=== PATIENT | female | born 1955 | race Caucasian/White ===

== ENCOUNTER → 2018-01-14 08:58 | Outpatient (CLI) | payer OTHER, SELFPAY | PROVIDERS: Family Provider Family Medicine; PCP Family Medicine | DX: R00.2 Palpitations (principal); R53.83 Other fatigue | CPT/HCPCS: 93225; 93226 ==

== ENCOUNTER 2019-07-15 13:01 | Inpatient (IN) | payer OTHER, SELFPAY ==
[2019-07-15] VITALS (10 sets, daily range): BP systolic 102–131; BP diastolic 50–74; PULSE 77–104; RESP 15–17; TEMP 36.9–37.3; O2SAT 93–98; BMI 25.2; BMI 24.8; BMI 24.9
--- NOTE | 2019-07-15 13:41 | CT_ITS ---
STUDY: CTA CHEST REASON FOR EXAM: Female, 63 years old. Patient has a history of lymphoma. RADIATION DOSAGE (If Supplied By Facility): CTDIvol = ( 6.66 ) mGy, DLP = ( 273.58 ) mGycm TECHNIQUE: The examination was performed with the intravenous administration of IV Isovue 370 100. Post-processing of the angiographic images was performed, with multiplanar reformation and 3D reconstruction. Individualized dose optimization techniques were used for this CT. COMPARISON: None. FINDINGS: Normal enhancement of the main pulmonary artery and right and left pulmonary arteries. Normal enhancement of the bilateral peripheral pulmonary arteries. There is no demonstrated pulmonary embolism. Normal thoracic aorta and visualized great vessels. There is no demonstrated aortic dissection. Normal heart and pericardium. Normal mediastinum. Small bilateral hilar lymph nodes. Normal visualized trachea and bronchi. The lungs are well expanded. Normal pulmonary parenchyma. Normal pleura. Normal chest wall structures. There are degenerative changes of thoracic spine. Massive splenomegaly. Multiple low density nodules are seen in the liver. These most likely represent multiple cysts. The largest is in the right lobe and measures 6.6 cm x 7.[address]/CTA Chest W/WO Contrast IMPRESSION: No evidence of pulmonary embolism. Marked degree of splenomegaly. Multiple cystic structures are seen within the liver. Electronically Signed: Jesus Guadalupe, at 15:21 EDT , Service support ,
[2019-07-15] MEDS: 0.9% Normal Saline 1,000 ML 1000 ML IV (14:16)
[2019-07-15] MEDS: MethylPREDNISolone 125 MG/2 ML Vial IV (14:16)
[2019-07-15 14:31] LABS: Absolute Lymphocyte Count 0.95 X10^3/uL (0.83-4.51); Basophil# 0.01 X10^3/uL; Basophil% 0.4 % (0-1); Eosinophil# 0.01 X10^3/uL; Eosinophils% 0.4 % (0-5); Hematocrit 23.4 % (37-47); Hemoglobin 7.4 g/dL (12.0-15.0); Lymphocyte # 0.95 X10^3/ul (4.0); Lymphocyte % 39.9 % (19-41); Mean Corp Hgb Conc 31.6 g/dL (32-36); Mean Corpuscular Hgb 26.6 pg (27.0-32.0); Mean Corpuscular Volume 84.2 fL (81-99); Mean Platelet Vol. 9.2 fl (6.2-12.0); Monocyte# 0.36 X10^3/uL; Monocyte% 15.1 % (0-10); NRBC Flagged by Analyzer 0 % (0-5); Neutrophil # 1.02 X10^3/uL (2.7-7.7); Neutrophil % 42.9 % (47-70); POSITIVE MORPHOLOGY YES; Platelet Count 105 K/mm3 (150-450); RBC Distribution Width CV 15.9 % (11.6-14.6); RBC Distribution Width SD 48.1 fl (35.1-43.9); Red Blood Count 2.78 M/mm3 (4.2-5.4); White Blood Count 2.4 K/mm3 (4.4-11.0)
[2019-07-15 14:34] LABS: Differential Indicated SCAN CRITERIA MET
[2019-07-15 14:36] LABS: International Normalized Ratio 1.2; Partial Thromboplast Time 29.3 Seconds (24.1-36.2); Prothrombin Time (Protime)PT. 14.5 SECONDS (11.7-14.9)
[2019-07-15 14:41] LABS: ALB/GLOB Ratio 1.3 RATIO (0.9-2.4); AST(SGOT) 22 U/L (15-37); Alanine Aminotransfer ALT/SGPT 20 U/L (13-56); Albumin, Serum 3.3 g/dL (3.2-5.0); Alkaline Phosphatase 145 U/L (45-117); Anion Gap 6 (5-15); BUN 17 mg/dL (7-18); BUN/Creat Ratio 19.5 RATIO (10-20); Calcium,Total 8.8 mg/dL (8.5-10.1); Chloride 105 mmol/L (98-107); Creatinine, Serum 0.87 mg/dL (0.55-1.02); EST Glomerular Filtration Rate 69 mL/min (>60); Est Glom Filt Rate - Afr Amer 84 mL/min (>60); Estimated Creatinine Clearance 61.16 ml/min; Globulin 2.6 g/dL (2.2-4.2); Glucose 99 mg/dL (74-106); Potassium 4.1 mmol/L (3.5-5.1); Protein, Total 5.9 g/dL (6.4-8.2); Sodium Level 138 mmol/L (136-145)
--- NOTE | 2019-07-15 15:03 | ED.VISSUMM ---
- ER Visit Summary Date of Service: 07/15/19 Chief Complaint: Anemia History of Present Illness: The patient is a 63 F with an extensive past medical history. She was referred to the ED by Dr. Franklin for evaluation and admission for further care. 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 She began having a dry cough this April. This was associated with fatigue. She saw her PCP who found an enlarged spleen. She had an outpatient CT that confirmed splenomegaly. She followed up with Dr. Franklin. She was found to be anemic. He did other testing and is concerned for a recurrence of her lymphoma. There was also some concern for Mycobacterium infection. She had an infection in her finger and completed a year of antibiotics in 2017. She is not having finger symptoms or wounds. Dr. Franklin to her arrival. He had advised admission. He wanted her treated with Solu-Medrol and he had advised a CT chest as this was pending. She was scheduled for one tomorrow. Of note, she is scheduled for a bone marrow biopsy next week. He has been treating her with Levaquin for 1 day for possible respiratory infection. He advised that the patient will need admission for IVIG and prednisone and likely continued antibiotics. He also said that her hemoglobin was 9 last week and today was 7.8. Her testing indicated that this is hemolytic anemia. Physical Examination: Afebrile and vital signs unremarkable except for heart rate of 104. Heart regular. Lungs clear. Abdomen soft. Skin grossly unremarkable. Alert and oriented. No acute distress. Test Results: Patient presents with labs from July 08. I do not see other blood work in the system. I am checking basic blood work and will order the CTA. Results are pending. Emergency Department Course and Treatment: Patient was treated with IV fluids and Solu-Medrol. Type and screen done, white count 2.4, hemoglobin 7.4, platelets 105. Total bilirubin 1.2, alkaline phosphatase 145, coags normal. CTA pending at the time of this dictation. Oncoming doctor will check the results. Will discuss with the hospitalist for admission for further care. Treatment Plan: As above Disposition: Admission Impression: 1. Hemolytic anemia 2. History of Malt lymphoma This note was generated with [employer] software. It may contain incorrect words, spelling, and punctuation that were not noted in review of the chart prior to signing ED Disposition - Plan for ED Patient: Referrals: Evelio Yun III, MD [Primary Care Provider] -
--- NOTE | 2019-07-15 15:28 | HP.PCM_ITS ---
Problem List (1) Anemia Status: Acute Qualifiers: Anemia type: unspecified type Qualified Code(s): D64.9 - Anemia, unspecified (2) Pancytopenia Status: Acute (3) Lymphoma Status: Acute Qualifiers: Lymphoma type: Hodgkin Hodgkin lymphoma type: unspecified type Lymphoma site: multiple regions Qualified Code(s): C81.98 - Hodgkin lymphoma, unspecified, lymph nodes of multiple sites (4) Sjogren's disease Status: Chronic Qualifiers: Sjogren's organ involvement: unspecified organ involvement Qualified Code(s): M35.00 - Sicca syndrome, unspecified History of Present Illness Date of Admission: 07/15/19 Chief Complaint: Abnormal blood work The patient is a 63 year old F's medical history of Sjogren's disease, 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 Franklin with months history of fatigue, dyspnea with exertion, dry cough, massive splenomegaly and weight loss. Patient was sent to the emergency room with abnormal blood work with concerns for hemolytic anemia. Her blood work in the [facility] oncology office (07/08/19) showed WBC 3.82, Hb 9.0, Plt 110, CMP was unremarkable, Quantiferon TB was indeterminate, HIV 1/2 negative, Hepatitis panel was negative, reticulocyte count of 3.2, haptoglobin was less than 10, LDH was 382, IgG was 569, IgA was 44 ,bone marrow biopsy planned for next week. She was sent to the emergency room with concerns for hemolytic anemia. 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 In the emergency department, her temperature was 99.1 F, heart rate 104, blood pressure 131/71, respiratory rate of 15, SPO2 is 96% on room air. WBC count was 2.4, hemoglobin was 7.4, platelet count was 105, INR was 1.2, CMP was unremarkable except for total bilirubin of 1.2, ALP of 145. CTA of the chest showed no evidence of PE, marked splenomegaly, multiple cystic structures in the liver. 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 Denies: Chills, Fever, Weight Change Eyes: Denies: Blurred vision, Cataracts, Conjunctivae Inflammation, Pain, Redness, Vision Change HEENT: Denies: Difficulty Hearing, Difficulty Swallowing, Head Aches, Hearing Changes, Sinus Congestion, Sinus Drainage Cardiovascular: Denies: Chest Pain, Claudication, Orthopnea, Palpitations, Paroxysmal Noc. Dyspnea Respiratory: Reports: Cough - dry. Denies: Shortness of breath at rest, Shortness of breath upon exertion, Sputum production Gastrointestinal: Denies: Abdominal Pain, Constipation, Hematemesis, Nausea, Vomiting Genitourinary: Denies: Dysuria, Frequency Musculoskeletal: Denies: Joint Pain, Joint stiffness, Joint swelling, Joint Tenderness Skin: Denies: Rash, Wounds Neurological: Denies: Numbness, Tingling, Focal weakness Psychiatric: Denies: Anxiety, Depression, Homicidal Ideations, Suicidal Ideations Hematologic/ Lymphatic: Denies: Easy Bruising, Easy Bleeding VTE Information - Inpt Only VTE Present on Admission: No VTE Pharm Prophylaxis ordered?: Yes Patient Problems: Active and Suspected Problems Anemia (Acute) Pancytopenia (Acute) Lymphoma (Acute) - Physical Exam General: Alert, Oriented x3, Cooperative, No apparent distress HEENT: Atraumatic, PERRLA, EOMI, Normocephalic Oral: Moist Mucosa Neck: Supple Lungs: Clear to auscultation, Normal air movement Cardiovascular: Regular rate, Regular Rhythm, Normal S1, Normal S2, No murmurs Abdomen: Bowel Sounds Present, Soft, Tender - over the epigastric and upper abdomen Extremities: No edema Skin: No rashes, No breakdown Musculoskeletal: No Tenderness to Palpation of Joints or Extremities Lymphatic: No Cervical, Supraclavicular, or Inguinal Adenopathy Neurological: Cranial nerves II-XII grossly intact, Neuro grossly intact Psych/Mental Status: Normal Affect, Appropriate Vital Signs Temp Pulse Resp BP Pulse Ox 99.1 F 104 H 15 131/71 H 96 07/15/19 13:02 07/15/19 13:02 07/15/19 13:02 07/15/19 13:02 07/15/19 13:02 Oxygen Delivery Method Room Air Weight: 71.1 kg Body Mass Index (BMI) 25.2 Laboratory Tests Past 24 Hrs 07/15/19 07/15/19 07/15/19 14:08 14:08 14:08 WBC 2.4 L RBC 2.78 L Hgb 7.4 L Hct 23.4 L MCV 84.2 MCH 26.6 L MCHC 31.6 L RDW Std Deviation 48.1 H RDW Coeff of Alex 15.9 H Plt Count 105 L MPV 9.2 Immature Gran % (Auto) 1.300 H Neut % (Auto) 42.9 L Lymph % (Auto) 39.9 [place] % (Auto) 15.1 H Eos % (Auto) 0.4 Baso % (Auto) 0.4 Absolute Neuts (auto) 1.0 L Absolute Lymphs (auto) 0.95 Nucleated RBC % 0 Differential Comment COMMENT PT 14.5 INR 1.2 APTT 29.3 Sodium 138 Potassium 4.1 Chloride 105 Carbon Dioxide 27.0 Anion Gap 6 BUN 17 Creatinine 0.87 Estim Creat Clear Calc 61.16 Est GFR (MDRD) Af Amer 84 Est GFR (MDRD) Non-Af 69 BUN/Creatinine Ratio 19.5 Glucose 99 Calcium 8.8 Total Bilirubin 1.20 H AST 22 ALT 20 Alkaline Phosphatase 145 H Total Protein 5.9 L Albumin 3.3 Globulin 2.6 Albumin/Globulin Ratio 1.3 Assessment/Plan All Active Problems Anemia (Acute) Pancytopenia (Acute) Lymphoma (Acute) 63 year old F's medical history of Sjogren's disease, 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 Franklin with months history of fatigue, dyspnea with exertion, dry cough, massive splenomegaly and weight loss. 1. Anemia, acute hemolytic anemia, noted on blood work done in the outpatient 1 week ago, follows with Dr. Franklin in the outpatient Hb was 9.0 on 07/08/19, dropped to 7.4 today. Pancytopenia also noted Patient received IV Solu-Medrol 125 mg x 1 today in ED Plan: Admit to Medsurg, pain screen against 2 units of blood, FOBT, iron stores, H&H every 6h, oncology consult Discussed with Dr. Franklin, IVIG 60 g x 2 days, prednisone from tomorrow 2. Massive splenomegaly, unclear etiology for now, likely secondary to probable lymphoma, follows with Dr. Franklin and Dr. Yun in the outpatient 3. Probable lymphoma, bone marrow biopsy planned for next week 4. Hypothyroidism, on Synthroid 5. Sjogren's disease 6. DVT PPx- Lovenox SC Code Visit Inpatient E&M: 79603 Subs Hosp L2
[2019-07-15 16:35] LABS: Ferritin 56 ng/mL (8-252); Iron 53 ug/dL (50-170); Iron Binding Capacity,Total 295 ug/dL (250-450)
[2019-07-15] MEDS: 0.9% Normal Saline 1,000 ML 100 ML IV (16:46)
[2019-07-15 18:02] LABS: Hemoglobin 7.3 g/dL (12.0-15.0); Platelet Count 93 K/mm3 (150-450); RET-HE 29.6 pg (30-35); Reticulocyte Count 3.23 % (0.5-1.5)
[2019-07-15] MEDS: Immune Globulin 20 gm Premixed Solution 30 BAG IV (21:28)
[2019-07-16] VITALS (18 sets, daily range): BP systolic 100–135; BP diastolic 41–71; PULSE 73–91; RESP 16–18; TEMP 36.3–37.1; O2SAT 94–99
[2019-07-16 00:03] LABS: Hemoglobin 7.1 g/dL (12.0-15.0)
[2019-07-16] MEDS: Immune Globulin 20 gm Premixed Solution 150 BAG IV ×2 (00:12→22:36)
[2019-07-16] MEDS: Immune Globulin 20 gm Premixed Solution 210 BAG IV (01:38)
[2019-07-16 06:40] LABS: Absolute Lymphocyte Count 1.39 X10^3/uL (0.83-4.51); Absolute Neutrophil Count 1.1 X10^3/uL (2.0-7.7); Basophil# 0.01 X10^3/uL; Basophil% 0.3 % (0-1); Hematocrit 21.9 % (37-47); Hemoglobin 6.7 g/dL (12.0-15.0); Lymphocyte # 1.39 X10^3/ul (4.0); Lymphocyte % 47.6 % (19-41); Mean Corp Hgb Conc 30.6 g/dL (32-36); Mean Corpuscular Hgb 26.3 pg (27.0-32.0); Mean Corpuscular Volume 85.9 fL (81-99); Mean Platelet Vol. 9.3 fl (6.2-12.0); Monocyte# 0.41 X10^3/uL; Neutrophil # 1.08 X10^3/uL (2.7-7.7); Neutrophil % 37.1 % (47-70); POSITIVE MORPHOLOGY YES; Platelet Count 101 K/mm3 (150-450); RBC Distribution Width CV 16.1 % (11.6-14.6); RBC Distribution Width SD 49.4 fl (35.1-43.9); Red Blood Count 2.55 M/mm3 (4.2-5.4); White Blood Count 2.9 K/mm3 (4.4-11.0)
[2019-07-16 06:46] LABS: Differential Indicated SCAN CRITERIA MET
[2019-07-16 07:03] LABS: ALB/GLOB Ratio 0.8 RATIO (0.9-2.4); AST(SGOT) 18 U/L (15-37); Alanine Aminotransfer ALT/SGPT 18 U/L (13-56); Albumin, Serum 2.8 g/dL (3.2-5.0); Alkaline Phosphatase 124 U/L (45-117); Anion Gap 6 (5-15); BUN 17 mg/dL (7-18); Calcium,Total 8.1 mg/dL (8.5-10.1); Chloride 110 mmol/L (98-107); Creatinine, Serum 0.89 mg/dL (0.55-1.02); Differential Comment SCANNED; EST Glomerular Filtration Rate 67 mL/min (>60); Est Glom Filt Rate - Afr Amer 82 mL/min (>60); Estimated Creatinine Clearance 59.78 ml/min; Globulin 3.4 g/dL (2.2-4.2); Glucose 118 mg/dL (74-106); LDH 322 U/L (84-246); Microcytosis 2+; Potassium 4.1 mmol/L (3.5-5.1); Protein, Total 6.2 g/dL (6.4-8.2); Sodium Level 141 mmol/L (136-145)
--- NOTE | 2019-07-16 07:59 | CON.PCM_ITS ---
Problem List (1) Non-Hodgkin lymphoma of extranodal and solid organ sites Status: Suspected (2) Anemia Status: Acute Qualifiers: Anemia type: acquired or hereditary hemolytic anemia Hemolytic anemia type: acquired, autoimmune, other Qualified Code(s): D59.1 - Other autoimmune hemolytic anemias (3) Sjogren's disease Status: Chronic Qualifiers: Sjogren's organ involvement: unspecified organ involvement Qualified Code(s): M35.00 - Sicca syndrome, unspecified (4) Splenomegaly Status: Acute - Consult Date of Consult: 07/16/[address] Perez regarding patient with severe autoimmune hemolytic anemia and splenomegaly suspicious for non-Hodgkin lymphoma. My final recommendation will be communicated to the nursing staff and also by electronic medical records. 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 Franklin with 2 months history of fatigue, dyspnea with exertion, dry cough, massive splenomegaly and weight loss (15 pounds) with early satiety. She noticed night sweats for the last month. Patient was sent to the emergency room with abnormal blood work with concerns for hemolytic anemia. Jose Juan was positive for complements but no warm IgG antibody. Her blood work in the [facility] oncology office (07/08/19) showed WBC 3.82, Hb 9.0, Plt 110, CMP was unremarkable, Quantiferon TB was indeterminate, HIV 1/2 negative, Hepatitis profile was negative, reticulocyte count of 3.2, haptoglobin was less than 10, LDH was 382, IgG was 569, IgA was 44 . A bone marrow biopsy planned for next week diagnosis of lymphoma. She was sent to the emergency room with concerns for hemolytic anemia. Her hemoglobin was 9.8 a month ago, today was 7.8. 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 Denies jaundice, fever, chills, chest pain, or shortness of breath. In the emergency department, her temperature was 99.1 F, heart rate 104, blood pressure 131/71, respiratory rate of 15, SPO2 is 96% on room air. WBC count was 2.4, hemoglobin was 7.4, platelet count was 105, INR was 1.2, CMP was unremarkable except for total bilirubin of 1.2, ALP of 145. CTA of the chest showed no evidence of PE, marked splenomegaly, multiple cystic structures in the liver. There are no hilar, mediastinal, axillary adenopathy. Past Medical History Past Medical History (Chronic Problems): Chronic Problems Sjogren's disease (Chronic) Allergies No Known Allergies Allergy (Verified 07/15/19 13:02) Home Medications: Ambulatory Orders Medication Instructions Recorded Cholecalciferol (Vitamin D3) 5,000 unit PO DAILY 07/15/19 [Vitamin D3] CycloSPORINE Ophthalmic [Restasis 1 drp EACHEYE BID 07/15/19 Ophthalmic] Estradiol 10 mg PO QWEEK 07/15/19 Levofloxacin 750 mg PO DAILY 07/15/19 Levothyroxine Sodium [Synthroid] 100 mcg PO DAILY 07/15/19 Surgical History: no surgical history Psychiatric History: No pertinent psych hx [employer] 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 Denies: Chills, Fever, Weight Change Eyes: Denies: Blurred vision, Cataracts, Conjunctivae Inflammation, Pain, Redness, Vision Change HEENT: Denies: Difficulty Hearing, Difficulty Swallowing, Head Aches, Hearing Changes, Sinus Congestion, Sinus Drainage Cardiovascular: Denies: Chest Pain, Claudication, Orthopnea, Palpitations, Paroxysmal Noc. Dyspnea Respiratory: Reports: Cough - dry. Denies: Shortness of breath at rest, Shortness of breath upon exertion, Sputum production Gastrointestinal: Denies: Abdominal Pain, Constipation, Hematemesis, Nausea, Vomiting Genitourinary: Denies: Dysuria, Frequency Musculoskeletal: Denies: Joint Pain, Joint stiffness, Joint swelling, Joint Tenderness Skin: Denies: Rash, Wounds Neurological: Denies: Numbness, Tingling, Focal weakness Psychiatric: Denies: Anxiety, Depression, Homicidal Ideations, Suicidal Id eations Hematologic/ Lymphatic: Denies: Easy Bruising, Easy Bleeding Hemolytic anemia (Acute) Pancytopenia secondary to splenomegaly (Acute) Non-Hodgkin lymphoma (Suspect) - Physical Exam General: Alert, Oriented x3, Cooperative, No apparent distress HEENT: Atraumatic, PERRLA, EOMI, Normocephalic Oral: Moist Mucosa Neck: Supple Lungs: Clear to auscultation, Normal air movement Cardiovascular: Regular rate, Regular Rhythm, Normal S1, Normal S2, No murmurs Abdomen: Bowel Sounds Present, Soft, Tender - over the epigastric and upper abdomen + massive splenomegaly to left pelvis. No ascites Extremities: No edema Skin: No rashes, No breakdown Musculoskeletal: No Tenderness to Palpation of Joints or Extremities Lymphatic: No Cervical, Supraclavicular, or Inguinal Adenopathy Neurological: Cranial nerves II-XII grossly intact, Neuro grossly intact Psych/Mental Status: Normal Affect, Appropriate Vital Signs Temp Pulse Resp BP Pulse Ox 99.1 F 104 H 15 131/71 H 96 07/15/19 13:02 07/15/19 13:02 07/15/19 13:02 07/15/19 13:02 07/15/19 13:02 Oxygen Delivery Method Room Air Weight: 71.1 kg Body Mass Index (BMI) 25.2 Laboratory Results - last 24 hr 07/15/19 07/15/19 07/15/19 14:08 14:08 14:08 WBC 2.4 L RBC 2.78 L Hgb 7.4 L Hct 23.4 L MCV 84.2 MCH 26.6 L MCHC 31.6 L RDW Std Deviation 48.1 H RDW Coeff of Alex 15.9 H Plt Count 105 L MPV 9.2 Immature Gran % (Auto) 1.300 H Neut % (Auto) 42.9 L Lymph % (Auto) 39.9 [place] % (Auto) 15.1 H Eos % (Auto) 0.4 Baso % (Auto) 0.4 Absolute Neuts (auto) 1.0 L Absolute Lymphs (auto) 0.95 Nucleated RBC % 0 Differential Comment COMMENT Microcytosis Retic Count Immature Retic Fraction Retic Hgb Equivalent PT 14.5 INR 1.2 APTT 29.3 Sodium 138 Potassium 4.1 Chloride 105 Carbon Dioxide 27.0 Anion Gap 6 BUN 17 Creatinine 0.87 Estim Creat Clear Calc 61.16 Est GFR (MDRD) Af Amer 84 Est GFR (MDRD) Non-Af 69 BUN/Creatinine Ratio 19.5 Glucose 99 Calcium 8.8 Iron TIBC Iron Saturation Ferritin Total Bilirubin 1.20 H AST 22 ALT 20 Alkaline Phosphatase 145 H Lactate Dehydrogenase Total Protein 5.9 L Albumin 3.3 Globulin 2.6 Albumin/Globulin Ratio 1.3 Folate Blood Type Antibody Screen Antibody Identification 07/15/19 07/15/19 07/15/19 14:08 14:08 17:45 WBC RBC Hgb 7.3 L Hct 23.0 L MCV MCH MCHC RDW Std Deviation RDW Coeff of Alex Plt Count MPV Immature Gran % (Auto) Neut % (Auto) Lymph % (Auto) [place] % (Auto) Eos % (Auto) Baso % (Auto) Absolute Neuts (auto) Absolute Lymphs (auto) Nucleated RBC % Differential Comment Microcytosis Retic Count 3.23 H Immature Retic Fraction 24.50 H Retic Hgb Equivalent 29.6 L PT INR APTT Sodium Potassium Chloride Carbon Dioxide Anion Gap BUN Creatinine Estim Creat Clear Calc Est GFR (MDRD) Af Amer Est GFR (MDRD) Non-Af BUN/Creatinine Ratio Glucose Calcium Iron 53 TIBC 295 Iron Saturation 18.0 Ferritin 56 Total Bilirubin AST ALT Alkaline Phosphatase Lactate Dehydrogenase Total Protein Albumin Globulin Albumin/Globulin Ratio Folate 10.90 Blood Type Antibody Screen Antibody Identification 07/15/19 07/15/19 07/16/19 17:45 23:50 06:04 WBC 2.9 L RBC 2.55 L Hgb 7.1 L 6.7 L Hct 23.0 L 21.9 L MCV 85.9 MCH 26.3 L MCHC 30.6 L RDW Std Deviation 49.4 H RDW Coeff of Alex 16.1 H Plt Count 101 L MPV 9.3 Immature Gran % (Auto) 1.000 H Neut % (Auto) 37.1 L Lymph % (Auto) 47.6 H [place] % (Auto) 14.0 H Eos % (Auto) 0.0 Baso % (Auto) 0.3 Absolute Neuts (auto) 1.1 L Absolute Lymphs (auto) 1.39 Nucleated RBC % 1.0 Differential Comment SCANNED Microcytosis 2+ Retic Count Immature Retic Fraction Retic Hgb Equivalent PT INR APTT Sodium Potassium Chloride Carbon Dioxide Anion Gap BUN Creatinine Estim Creat Clear Calc Est GFR (MDRD) Af Amer Est GFR (MDRD) Non-Af BUN/Creatinine Ratio Glucose Calcium Iron TIBC Iron Saturation Ferritin Total Bilirubin AST ALT Alkaline Phosphatase Lactate Dehydrogenase Total Protein Albumin Globulin Albumin/Globulin Ratio Folate Blood Type A NEGATIVE Antibody Screen NEGATIVE Antibody Identification NEGATIVE ANTIBODY PANEL 07/16/19 06:04 WBC RBC Hgb Hct MCV MCH MCHC RDW Std Deviation RDW Coeff of Alex Plt Count MPV Immature Gran % (Auto) Neut % (Auto) Lymph % (Auto) [place] % (Auto) Eos % (Auto) Baso % (Auto) Absolute Neuts (auto) Absolute Lymphs (auto) Nucleated RBC % Differential Comment Microcytosis Retic Count Immature Retic Fraction Retic Hgb Equivalent PT INR APTT Sodium 141 Potassium 4.1 Chloride 110 H Carbon Dioxide 25.0 Anion Gap 6 BUN 17 Creatinine 0.89 Estim Creat Clear Calc 59.78 Est GFR (MDRD) Af Amer 82 Est GFR (MDRD) Non-Af 67 BUN/Creatinine Ratio 19.0 Glucose 118 H Calcium 8.1 L Iron TIBC Iron Saturation Ferritin Total Bilirubin 0.70 AST 18 ALT 18 Alkaline Phosphatase 124 H Lactate Dehydrogenase 322 H Total Protein 6.2 L Albumin 2.8 L Globulin 3.4 Albumin/Globulin Ratio 0.8 L Folate Blood Type Antibody Screen Antibody Identification Assessment/Plan All Active Problems Hemolytic anemia (Acute) -low level IgG versus IgM antibodies Pancytopenia (Acute) -secondary to hypersplenism Non-Hodgkin lymphoma (Suspect) Cough (Chronic) -secondary to diaphragmatic irritation from enlarged spleen. 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 2 months history of fatigue, dyspnea with exertion, dry cough, massive splenomegaly and weight loss secondary to recurrent lymphoma. 1) Anemia, acute hemolytic anemia, possible low level of IgG versus cold agglutinins Hb was 9.7 on 06/26/19, dropped to 7.4 today. Pancytopenia also noted Patient received IV Solu-Medrol 125 mg x 1 today in ED Plan: -Repeat IVIG 1grm/kg IV today -Prednisone 60mg daily -Folic acid 1mg daily -Zantac/Pepcid daily -Monitor CBC daily and possible discharge home this weekend if stable. -Avoid blood transfusion unless patient is symptomatic and hemoglobin < 6.0 -If Blood transfusion as needed; use blood warmer for transfusion because of possibility of cold agglutinins. 2) hypersplenism -Asymptomatic except for pancytopenia Plan: -Monitor for pain and splenic infarcts -LMWH sq daily for DVT prophylaxis 3) non-Hodgkin lymphoma -Staging work-up so far negative except for hypersplenism Plan: -Check for GI involvement (MALT-lymphoma) -Stool for Hemoccult and H. pylori breath test -Possible EGD as an outpatient 4) chronic cough -No active sign of infection or interstitial lung disease on CT chest. Plan: -Check respiratory panel -Cough Suppressant as needed. Patient is plan for discharge this weekend if stable. Follow-up with Dr. Franklin on Saturday for bone marrow biopsy as outpatient. cc: Dr. Uzair Franklin; Dr. Evelio Yun, III; Dr. Morgan Rendon
[2019-07-16] MEDS: predniSONE 20 MG Tablet 60 MG PO (08:44)
[2019-07-16] MEDS: Folic Acid 1 MG Tablet PO (08:44)
[2019-07-16] MEDS: Enoxaparin 40 MG/0.4 ML Syringe SC (08:52)
[2019-07-16 09:08] LABS: Vitamin B12 260 pg/mL (211-911)
--- NOTE | 2019-07-16 13:04 | PCM.PN.HOSP ---
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 Wants to wear jeans and walk around. Vitals/I&O's: Vital Signs Temp Pulse Resp BP Pulse Ox 36.8 C 81 16 114/51 L 98 07/16/19 08:42 07/16/19 08:42 07/16/19 08:42 07/16/19 08:42 07/16/19 08:42 Oxygen Delivery Method Room Air Weight: 73.4 kg Body Mass Index (BMI) 24.8 Intake and Output for Last 24 Hours 07/14/19 07/15/19 07/16/19 23:59 23:59 23:59 Intake Total 2225.67 / 2425.67 1374.33 / 1374.33 Output Total 300 / 900 2200 / 2200 Balance 1925.67 / 1525.67 -825.67 / -825.67 General: Alert, No apparent distress HEENT: Atraumatic, Normocephalic Oral: Moist Mucosa, No Gingival or Mucosal Lesions/ Ulcerations Neck: No Nodes, Thyroid Normal Size and Texture Lungs: Clear to auscultation, Normal air movement, No rhonchi, No wheeze, No rales Cardiovascular: Regular rate, Regular Rhythm, Normal S1, Normal S2, No murmurs Abdomen: Bowel Sounds Present, Soft, Non Tender, Non-Distended, No Hepato-splenomegaly Extremities: No edema, No Calf Tenderness Skin: No rashes, No breakdown Musculoskeletal: No Tenderness to Palpation of Joints or Extremities, No Muscle Wasting Psych/Mental Status: Normal Affect, Appropriate Laboratory Results 07/15/19 14:08: WBC 2.4 L, RBC 2.78 L, Hgb 7.4 L, Hct 23.4 L, MCV 84.2, MCH 26.6 L, MCHC 31.6 L, RDW Std Deviation 48.1 H, RDW Coeff of Alex 15.9 H, Plt Count 105 L, MPV 9.2, Immature Gran % (Auto) 1.300 H, Neut % (Auto) 42.9 L, Lymph % (Auto) 39.9, Nolan % (Auto) 15.1 H, Eos % (Auto) 0.4, Baso % (Auto) 0.4, Absolute Neuts (auto) 1.0 L, Absolute Lymphs (auto) 0.95, Nucleated RBC % 0, Differential Comment COMMENT 07/15/19 14:08: PT 14.5, INR 1.2, APTT 29.3 07/15/19 14:08: Sodium 138, Potassium 4.1, Chloride 105, Carbon Dioxide 27.0, Anion Gap 6, BUN 17, Creatinine 0.87, Estim Creat Clear Calc 61.16, Est GFR (MDRD) Af Amer 84, Est GFR (MDRD) Non-Af 69, BUN/Creatinine Ratio 19.5, Glucose 99, Calcium 8.8, Total Bilirubin 1.20 H, AST 22, ALT 20, Alkaline Phosphatase 145 H, Total Protein 5.9 L, Albumin 3.3, Globulin 2.6, Albumin/Globulin Ratio 1.3 07/15/19 14:08: Iron 53, TIBC 295, Iron Saturation 18.0, Ferritin 56 07/15/19 14:08: Folate 10.90 07/15/19 17:45: Hgb 7.3 L, Hct 23.0 L, Retic Count 3.23 H, Immature Retic Fraction 24.50 H, Retic Hgb Equivalent 29.6 L 07/15/19 17:45: Blood Type A NEGATIVE, Antibody Screen NEGATIVE, Antibody Identification NEGATIVE ANTIBODY PANEL 07/15/19 23:50: Hgb 7.1 L, Hct 23.0 L 07/16/19 06:04: WBC 2.9 L, RBC 2.55 L, Hgb 6.7 L, Hct 21.9 L, MCV 85.9, MCH 26.3 L, MCHC 30.6 L, RDW Std Deviation 49.4 H, RDW Coeff of Alex 16.1 H, Plt Count 101 L, MPV 9.3, Immature Gran % (Auto) 1.000 H, Neut % (Auto) 37.1 L, Lymph % (Auto) 47.6 H, Nolan % (Auto) 14.0 H, Eos % (Auto) 0.0, Baso % (Auto) 0.3, Absolute Neuts (auto) 1.1 L, Absolute Lymphs (auto) 1.39, Nucleated RBC % 1.0, Differential Comment SCANNED, Microcytosis 2+ 07/16/19 06:04: Sodium 141, Potassium 4.1, Chloride 110 H, Carbon Dioxide 25.0, Anion Gap 6, BUN 17, Creatinine 0.89, Estim Creat Clear Calc 59.78, Est GFR (MDRD) Af Amer 82, Est GFR (MDRD) Non-Af 67, BUN/Creatinine Ratio 19.0, Glucose 118 H, Calcium 8.1 L, Total Bilirubin 0.70, AST 18, ALT 18, Alkaline Phosphatase 124 H, Lactate Dehydrogenase 322 H, Total Protein 6.2 L, Albumin 2.8 L, Globulin 3.4, Albumin/Globulin Ratio 0.8 L 07/16/19 06:04: Vitamin B12 260 07/16/19 : H. pylori Breath Test Pending Current Medications Acetaminophen (Tylenol) 650 mg PO Q6H PRN PRN PRN Reason: Mild Pain (1-3)/Temp > 100.7 F Al Hydroxide/Mg Hydroxide (Mylanta Ii) 30 ml PO Q6H PRN PRN PRN Reason: Gastric Burning Enoxaparin Sodium (Lovenox) 40 mg SC DAILY@1000 [facility] Last Admin: 07/16/19 08:52 Dose: 40 mg Documented by: Folic Acid (Folic Acid) 1 mg PO DAILY@0800 [facility] Last Admin: 07/16/19 08:44 Dose: 1 mg Documented by: Immune Globulin 20 gm/ N/A 200 mls @ 30 mls/hr IV Q1H [facility]; Protocol Stop: 07/16/19 23:59 Levothyroxine Sodium (Synthroid) 100 mcg PO DAILY@0600 [facility] Last Admin: 07/16/19 06:09 Dose: Not Given Documented by: Nitroglycerin (Nitrostat) 0.4 mg SUBLINGUAL Q5M PRN PRN Reason: CARDIAC/CHEST PAIN Nutritional Formula (Lactose Free) (Ensure Enlive) 120 ml PO 4X/DAY [facility] Last Admin: 07/16/19 08:46 Dose: Not Given Documented by: Ondansetron HCl (Zofran) 4 mg IV Q8H PRN PRN PRN Reason: NAUSEA/VOMITING Prednisone () 60 mg PO DAILY@0800 [facility] Last Admin: 07/16/19 08:44 Dose: 60 mg Documented by: Sodium Chloride () 5 - 15 ml IV UD PRN PRN Reason: SALINE FLUSH Medical Necessity - Tobacco Use Smoking Status: Never smoker Tobacco Use: Non-smoker Assessment/Plan All Active Problems Anemia (Acute) Pancytopenia (Acute) Splenomegaly (Acute) 1. hemolytic anemia IVIG prednisone DW Dr. Griffin, hold on transfusion unless symptomatic 2. VTE proph: LMWH Code Visit Inpatient E&M: 55458 Subs Hosp L2
--- NOTE | 2019-07-16 14:09 | CASEMGMT ---
SW met w/pt in room in regard to prior level of function, living situation, homegoing needs. PCP: Dr. Yun Specialists: Dr. Franklin, Dr. 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 YONG spoke w/pt at length about her health and her father's health concerns. Support given. YONG will return tomorrow to speak w/pt further and give pt resources for her father. ALVARO Hernandez
[2019-07-16] MEDS: 0.9% Saline Lock 10 ML Syringe IV (20:03)
[2019-07-16] MEDS: Immune Globulin 20 gm Premixed Solution 30 BAG IV (20:09)
[2019-07-16] MEDS: Immune Globulin 20 gm Premixed Solution 240 BAG IV (23:42)
[2019-07-17 00:09] VITALS: BP 96/53; PULSE 79; RESP 16; TEMP 36.8; O2SAT 98
[2019-07-17 00:39] VITALS: BP 94/55; PULSE 82; RESP 16; TEMP 36.8; O2SAT 96
[2019-07-17 04:22] VITALS: BP 94/50; PULSE 79; RESP 16; TEMP 36.6; O2SAT 96
[2019-07-17 07:21] LABS: Absolute Lymphocyte Count 1.31 X10^3/uL (0.83-4.51); Hematocrit 21.4 % (37-47); Hemoglobin 6.6 g/dL (12.0-15.0); Lymphocyte # 1.31 X10^3/ul (4.0); Lymphocyte % 49.8 % (19-41); Mean Corp Hgb Conc 30.8 g/dL (32-36); Mean Corpuscular Hgb 26.7 pg (27.0-32.0); Mean Corpuscular Volume 86.6 fL (81-99); Mean Platelet Vol. 8.8 fl (6.2-12.0); Monocyte# 0.32 X10^3/uL; Monocyte% 12.2 % (0-10); NRBC Flagged by Analyzer 0.8 % (0-5); Neutrophil # 0.98 X10^3/uL (2.7-7.7); Neutrophil % 37.2 % (47-70); POSITIVE DIFFERENTIAL YES; POSITIVE MORPHOLOGY YES; Platelet Count 111 K/mm3 (150-450); RBC Distribution Width CV 16.3 % (11.6-14.6); RBC Distribution Width SD 50.2 fl (35.1-43.9); Red Blood Count 2.47 M/mm3 (4.2-5.4); White Blood Count 2.6 K/mm3 (4.4-11.0)
[2019-07-17 07:28] LABS: Differential Indicated SCAN CRITERIA MET
[2019-07-17 08:00] VITALS: BP 107/58; PULSE 87; RESP 18; TEMP 36.8; O2SAT 97
[2019-07-17] MEDS: predniSONE 20 MG Tablet 60 MG PO (08:05)
[2019-07-17] MEDS: Folic Acid 1 MG Tablet PO (08:06)
[2019-07-17] MEDS: Enoxaparin 40 MG/0.4 ML Syringe SC (08:06)
[2019-07-17 08:36] LABS: Atypical Lymphocyte 1+ %; Polychromasia RARE
[2019-07-17 08:37] LABS: Anisocytosis 2+; Platelet Estimate ADEQUATE (ADEQ)
--- NOTE | 2019-07-17 11:41 | CASEMGMT ---
SW met w/pt again this morning. SW provided resources for home health(private hire), transportation, a penitentiary booklet, and information on palliative care and hospice. Pt's father is meeting w/hospice this morning as he has bladder cancer and is not having it treated. SW educated pt briefly on both palliative care and hospice. SW also explained to pt that palliative care may be an option for her as well. Pt states understanding. SW and pt spoke further in regard to both her and her father's health conditions, support offered. No further needs, pt going home today. ALVARO Hernandez
--- NOTE | 2019-07-17 11:53 | DCINST_ITS ---
- Discharge Diagnoses Current Active Problems: Current Active and Chronic Problems Anemia (Acute) Pancytopenia (Acute) Sjogren's disease (Chronic) Splenomegaly (Acute) You will use the following diet at home:: No restrictions Your food should be the consistency of: Regular Discharge Activity: Return to Normal Activity - ease back slowly into routine. Return to work on:: 07/15/19 Call your doctor if you observe: Fever of 101 or Higher, Shortness of breath, Chest pain Allergies/Adverse Reactions: Allergies No Known Allergies Allergy (Verified 07/15/19 13:02) Medications to take at Discharge Cholecalciferol (Vitamin D3) [Vitamin D3] 5,000 unit PO DAILY 07/15/19 CycloSPORINE Ophthalmic [Restasis Ophthalmic] 1 drp EACHEYE BID 07/15/19 Estradiol 10 mg PO QWEEK 07/15/19 Levothyroxine Sodium [Synthroid] 100 mcg PO DAILY 07/15/19 Acetaminophen [Tylenol Tablet] 650 mg PO Q6H PRN PRN tablet 07/17/19 Folic Acid 1 mg PO DAILY@0800 tablet 07/17/19 Omeprazole 20 mg PO DAILY #1 tab. 07/17/19 Ondansetron [Zofran] 8 mg PO Q8H PRN PRN #30 tab 07/17/19 predniSONE tablet 3 tab PO DAILY@0800 #90 tab 07/17/19 The following prescriptions were given: Omeprazole 20 mg PO DAILY #1 tab. predniSONE tablet 3 tab PO DAILY@0800 #90 tab Transmission Status: Pending to [id number] Ondansetron [Zofran] 8 mg PO Q8H PRN PRN #30 tab PRN Reason: Nausea/Vomiting Transmission Status: Pending to [id number] Orders to be completed after discharge: CBC W/Diff, Automated Time Frame: 1 Week, Facility: [facility], Location: Laboratory Primary Care Physician: Evelio Yun III, MD [Primary Care Provider] - Within 2 Weeks Test Results: Test results from this visit will be discussed in further detail at your follow- up appointment, if applicable. Please Follow Up With: Uzair Franklin DO When: 1 week
--- NOTE | 2019-07-17 11:57 | PCM.WORK.EX ---
Work/School Excuse Work/School Excuse for:: Patient Please excuse this person from:: Other - Jury Duty From: 07/15/19 through: 07/24/19 Restrictions: Other - Patient would be unable to fully participate in Jury Duty during this time until her condition improves.
--- NOTE | 2019-07-17 11:59 | DS.PCM_ITS ---
Discharge Date and Diagnosis - Problem List Patient Problems: Active and Suspected Problems Anemia (Acute) Pancytopenia (Acute) Non-Hodgkin lymphoma of extranodal and solid organ sites (Suspected) Splenomegaly (Acute) Date of Admission: 07/15/19 Date of Discharge: 07/17/19 - Primary Discharge Diagnosis Active and Suspected Problems Anemia (Acute) Pancytopenia (Acute) Non-Hodgkin lymphoma of extranodal and solid organ sites (Suspected) Splenomegaly (Acute) - Secondary Discharge Diagnosis Chronic Problems Sjogren's disease (Chronic) Hospital Course and Treatment Imaging Results: Clinical Impression(s) from Imaging Studies Chest CTA 07/15/19 13:41 IMPRESSION: No evidence of pulmonary embolism. Marked degree of splenomegaly. Multiple cystic structures are seen within the liver. Electronically Signed: Jesus Guadalupe, at 15:21 EDT , Service support , Eloy Gaby: oncology Operations: None Procedures: None Summary of Care Provided: The patient is a 63 year old F presents with abnormal blood work. Patient was found to have a hemoglobin as outpatient of 9. Patient was directed to come to the emergency room. Patient was found to have a globin of 7.4. Concern was for hemolytic anemia and patient received 2 rounds of IVIG. Patient was also started on 60 mg of prednisone. Patient's hemoglobin dropped down to 6.7 and remained stable today, was 6.6. Patient did feel winded with just some minimal activity but otherwise feels fine otherwise. Had very lengthy conversation with patient about expectations and de-escalating her activity and to engage in her normal routines with time and I told her that she would need time to get acclimated to her new hemoglobin and also give that time to improve with medications and treatment. Patient is very anxious but states that she has a lot of friends and family who are willing to help her out. Advised patient take several more days off for work and patient was to go to jury duty on the but I have advised her to refrain from that as a not sure she would be able to tolerate being in a court room for 8+ hours per day at this time. I have written a note for her to be able to present to the people affiliated with the jury duty so that she may be relieved at that duty. Patient advised to contact them when she is feeling more short of breath dizzy or have any kind of fainting spells as it may be a sign of worsening anemia. Patient also told that she could also go to the emergency room. On the day of discharge, patient was claiming of some nausea may be treatable with prednisone so advised patient be on on omeprazole [id number]. Preferring that over an H2 wes given her thrombocytopenia at this time. Patient also be given prescription for Zofran as well to help with the nausea. 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 (Suspected) Splenomegaly (Acute) - Physical Exam General: Alert, No apparent distress HEENT: Atraumatic, Normocephalic Vital Signs Temp Pulse Resp BP Pulse Ox 36.8 C 87 18 107/58 L 97 07/17/19 08:00 07/17/19 08:00 07/17/19 08:00 07/17/19 08:00 07/17/19 08:00 Oxygen Delivery Method Room Air Weight: 70.4 kg Body Mass Index (BMI) 24.8 Intake and Output for Last 24 Hours 07/15/19 07/16/19 07/17/19 23:59 23:59 23:59 Intake Total 2225.67 / 2425.67 1933.38 / 2233.38 980 / 980 Output Total 300 / 900 3000 / 3000 Balance 1925.67 / 1525.67 -1066.62 / -766.62 980 / 980 Microbiology Past 72 Hours 07/16/19 11:14 Respiratory Panel (PCR) - Final Mucosa - Nasopharyngeal 07/16/19 13:09 Stool Occult Blood (JOSHUA) - Final Stool Laboratory Tests Past 24 Hrs 07/17/19 07:10 WBC 2.6 L RBC 2.47 L Hgb 6.6 L Hct 21.4 L MCV 86.6 MCH 26.7 L MCHC 30.8 L RDW Std Deviation 50.2 H RDW Coeff of Alex 16.3 H Plt Count 111 L MPV 8.8 Immature Gran % (Auto) 0.800 Neut % (Auto) 37.2 L Lymph % (Auto) 49.8 H [place] % (Auto) 12.2 H Eos % (Auto) 0.0 Baso % (Auto) 0.0 Absolute Neuts (auto) 1.0 L Absolute Lymphs (auto) 1.31 Nucleated RBC % 0.8 [address] Review May foll Atypical Lymphocytes 1+ Platelet Estimate ADEQUATE Polychromasia RARE Anisocytosis 2+ Discharge Diet: No Restrictions Discharge Activity: Return to Normal Activity - ease back slowly into routine. Return to work on:: 07/15/19 Call your doctor if you observe: Fever of 101 or Higher, Shortness of breath, Chest pain Home Medications: Medications to take at Discharge Cholecalciferol (Vitamin D3) [Vitamin D3] 5,000 unit PO DAILY 07/15/19 CycloSPORINE Ophthalmic [Restasis Ophthalmic] 1 drp EACHEYE BID 07/15/19 Estradiol 10 mg PO QWEEK 07/15/19 Levothyroxine Sodium [Synthroid] 100 mcg PO DAILY 07/15/19 Acetaminophen [Tylenol Tablet] 650 mg PO Q6H PRN PRN tablet 07/17/19 Folic Acid 1 mg PO DAILY@0800 tablet 07/17/19 Omeprazole 20 mg PO DAILY #1 tab. 07/17/19 Ondansetron [Zofran] 8 mg PO Q8H PRN PRN #30 tab 07/17/19 predniSONE tablet 3 tab PO DAILY@0800 #90 tab 07/17/19 Following Prescrptions Were Given to Patient: Omeprazole 20 mg PO DAILY #1 tab. predniSONE tablet 3 tab PO DAILY@0800 #90 tab Transmission Status: [id number] Ondansetron [Zofran] 8 mg PO Q8H PRN PRN #30 tab PRN Reason: Nausea/Vomiting Transmission Status: [id number] Other Amb Orders: CBC W/Diff, Automated Time Frame: 1 Week, Facility: [facility], Location: Laboratory Primary Care Physician: Evelio Yun III, MD [Primary Care Provider] - Within 2 Weeks Please Follow Up With: Uzair Franklin DO When: 1 week Disposition: Home Minutes spent on discharge:: 35 Patient Condition:: Fair Medical Necessity - Tobacco Use Smoking Status: Never smoker Tobacco Use: Non-smoker Meaningful Use Info Meaningful Use Diagnoses (Choose all that apply): None applicable Code Visit Inpatient E&M: 84872 Disch Hosp
[2019-07-17 14:34] LABS: Pathologist Review Reviewed
[2019-07-19 21:21] LABS: H.Pylori Breath Test Negative (Negative)
--- NOTE | 2019-07-20 15:01 | CASEMGMT ---
SULMA CM DC PHONE CALL DC DATE: 07/17/19 DC Disposition: Home Diagnosis on Discharge: Anemia LACE/STRATA: 07/02 Attempted call to phone. No answer and no message machine with name identifier. No message left. Vasiliy SAHA RN AC
== END 2019-07-17 13:15 | disposition home or self-care (01) | DRG 812 ==
LOC: ED 13:53 → MS2 15:27 → MS3 07-16 15:41
PROVIDERS: Internal Medicine Hematology & Oncology; Admitting Provider Internal Medicine; Emergency Provider Emergency Medicine; Family Provider Family Medicine; PCP Family Medicine
DX: D58.9 Hereditary hemolytic anemia, unspecified (principal); C81.90 Hodgkin lymphoma, unspecified, unspecified site; D61.818 Other pancytopenia; M35.00 Sjogren syndrome, unspecified; D73.1 Hypersplenism; E03.9 Hypothyroidism, unspecified; Z92.3 Personal history of irradiation; Z79.890 Hormone replacement therapy; Z82.49 Family history of ischemic heart disease and other diseases of the circulatory system; Z82.5 Family history of asthma and other chronic lower respiratory diseases; Z82.62 Family history of osteoporosis
CPT/HCPCS: 36415; 71275; 80053; 82274; 82607; 82728; 82746; 83013; 83540; 83550; 83615; 85014; 85018; 85025; 85045; 85610; 85730; 86850; 86870; 86900; 86901; 87633; 97802; 99284; J7030; A4216; J1568

== ENCOUNTER 2020-12-06 23:11 | Outpatient (RCR) | payer OTHER, SELFPAY ==
[2019-07-15 16:26] VITALS: BMI 24.8
[2020-12-06] MEDS: COVID-19 VACC, MRNA(PFIZER)/PF 30 MCG/0.3 ML SYRINGE IM (12:15)
[2020-12-27] MEDS: COVID-19 VACC, MRNA(PFIZER)/PF 30 MCG/0.3 ML SYRINGE IM (12:14)
== END 2021-03-07 23:59 ==
LOC: IMMUN 23:11
PROVIDERS: PCP Family Medicine; Visit Provider Family Medicine
DX: Z23 Encounter for immunization (principal)
CPT/HCPCS: 0001A; 0002A; 91300

== ENCOUNTER 2023-04-29 17:30 | Outpatient (RCR) | payer SELFPAY | END 2023-04-29 23:59 | LOC: NS 17:30 | DX: Z71.3 Dietary counseling and surveillance (principal); E11.9 Type 2 diabetes mellitus without complications ==

== ENCOUNTER 2024-05-04 12:10 | Outpatient (RCR) | payer SELFPAY | END 2024-05-30 23:59 | LOC: NS 12:10 | DX: Z71.3 Dietary counseling and surveillance (principal) ==